=== PATIENT | female | born 1950 | race Caucasian/White ===

== ENCOUNTER → 2021-07-15 | Outpatient (CLI) | payer MEDICARE ==
[~2021-07-15] MED LIST: ASPIRIN E.C. 8181 MG PO; ATIVAN 1MG T1 MG/TAB PO; CALCIUM1 CAP PO; CELEXA40 MG PO; FEMARA PO; MULTIPLE VITAMI1 CAP PO; NASACORT OTC NS; VITAMIN D32000 I1 PO; XALATAN EYE DROPS OU; ZOCOR 10MG10 MG PO
== END ==
LOC: COL.RAD 10:00
DX: M25.551 Pain in right hip (principal); Z96.641 Presence of right artificial hip joint
CPT/HCPCS: J3301; Q9967